=== PATIENT | female | born 1980 | race Asian ===

== ENCOUNTER 2018-11-22 17:33 | Emergency (ER) | payer OTHER ==
--- NOTE | 2018-11-22 18:11 | ER Document Report ---
ED Medical Screen (RME) - General Chief Complaint: Overdose Stated Complaint: POSSIBLE OVERDOSE Time Seen by Provider: 11/22/18 18:01 - HPI Notes: 11/22/18 18:06 Patient is a 38-year-old female with no significant past medical history who presents to the ED with her family and roommate (who is also translating for the pt) for ingesting 40 tablets of zyrtec 10mg at 1545 today. Patient states that this was an act of self-harm and to take her life. Patient states she found out her teenage daughter was talking badly about her and she has already had a strained relationship with her teenage daughter which vomited the action. She has not had any visual or auditory hallucinations. No previous suicidal or homicidal attempts. Patient is currently complaining of fatigue, headache, upset stomach, and feeling mildly short of breath. She otherwise has not had any recent illness. Denies drug allergies. She is otherwise acting at baseline per her roommate. Denies any fever, head injury, neck pain, changes in vision/speech/mentation/hearing, URI, sore throat, chest pain, palpitations, syncope, cough, wheeze, dyspnea, nausea/vomiting/diarrhea, urinary retention, dysuria, hematuria, loss of control of bowel or bladder, numbness/tingling, muscle paralysis/weakness, or rash. I did speak with Cece from poison control who states that the treatment is primarily supportive with 6-hour observation. She would like an EKG for baseline and a 4-hour postingestion Tylenol. They will be calling back later for follow-up. I have treated and performed a rapid initial assessment of this patient. A comprehensive ED assessment and evaluation of the patient, analysis of test results and completion of medical decision making process will be conducted by additional ED providers. PHYSICAL EXAMINATION: GENERAL: no acute distress. A&Ox4. Answers questions appropriately. HEAD: Atraumatic, normocephalic. Non-tender. EYES: Pupils equal round and reactive to light, extraocular movements intact, sclera anicteric, conjunctiva are normal. No nystagmus. ENT: Nares patent and without discharge. oropharynx clear without exudates. No tonsilar hypertrophy or erythema. Moist mucous membranes. NECK: Normal range of motion, supple without lymphadenopathy. No rigidity/meningismus. LUNGS: Breath sounds clear to auscultation bilaterally and equal. No wheezes rales or rhonchi. HEART: Regular rate and rhythm without murmurs, rubs, gallops. ABDOMEN: Soft, nontender, nondistended abdomen. No guarding, no rebound. Normal bowel sounds present. No CVA tenderness bilaterally. Musculoskeletal: Ext b/l: FROM to passive/active. Strength 5+/5. No deficits noted. No bony tenderness of extremities. Extremities: No cyanosis, clubbing, or edema b/l. Peripheral pulses 2+. Capil kiersten refill less than 2 seconds. NEUROLOGICAL: NIH 0. GCS 15. Cranial nerves grossly intact. Normal speech, normal gait. Normal sensory, motor exams. PSYCH: flat/tearful SKIN: Warm, Dry, normal turgor, no rashes or lesions noted. - Related Data Allergies/Adverse Reactions: No Known Allergies Allergy (Unverified 11/22/18 17:36) Past Medical History Renal/ Medical History: Denies: Hx Peritoneal Dialysis Physical Exam - Vital signs Vitals: Temp Pulse Resp BP Pulse Ox 97.7 F 96 16 124/80 100 11/22/18 17:37 11/22/18 17:37 11/22/18 17:37 11/22/18 17:37 11/22/18 17:37 Course - Vital Signs Vital signs: Temp Pulse Resp BP Pulse Ox 97.7 F 96 16 124/80 100 11/22/18 17:37 11/22/18 17:37 11/22/18 17:37 11/22/18 17:37 11/22/18 17:37
[2018-11-22] MEDS ORDERED: NORMAL SALINE 1000 ML 1,000 ML IV ONE (19:45)
[2018-11-22 20:16] LABS: ABSOLUTE EOSINOPHILS # (AUTO) 0.1 10^3/uL (0.0-0.6); ABSOLUTE LYMPHOCYTES (AUTO) 1.9 10^3/uL (0.5-4.7); ABSOLUTE MONOCYTES (AUTO) 0.6 10^3/uL (0.1-1.4); ABSOLUTE NEUT (AUTO) 3.6 10^3/uL (1.7-8.2); BASOPHILS % (AUTO) 0.4 % (0-2); HEMATOCRIT 40.2 % (36.0-47.0); HEMOGLOBIN 13.7 g/dL (12.0-15.5); LYMPHOCYTES % (AUTO) 30.4 % (13-45); MEAN CORPUSCULAR HEMOGLOBIN 29.7 pg (27.0-33.4); MEAN CORPUSCULAR HGB CONC 34.1 g/dL (32.0-36.0); MEAN CORPUSCULAR VOLUME 87 fl (80-97); MONOCYTES % (AUTO) 9.4 % (3-13); PLATELET COUNT 211 10^3/uL (150-450); RED BLOOD COUNT 4.62 10^6/uL (3.72-5.28); RED CELL DISTRIBUTION WIDTH 13.2 % (11.5-14.0); SEGMENTED NEUTROPHILS % (AUTO) 57.8 % (42-78); TOTAL CELLS COUNTED % (AUTO) 100 %; WHITE BLOOD COUNT 6.2 10^3/uL (4.0-10.5)
--- NOTE | 2018-11-22 20:25 | ER Document Report ---
Addendum entered and electronically signed by DARREN BAEZ MD 11/23/18 10:13: Discharge - Discharge Clinical Impression: Suicidal overdose Qualifiers: Encounter type: initial encounter Qualified Code(s): T50.902A - Poisoning by unspecified drugs, medicaments and biological substances, intentional self-harm, initial encounter Condition: Stable Disposition: HOME, SELF-CARE Additional Instructions: You have been evaluated both medical and behavioral health teams and been deemed appropriate for discharge. You highly encouraged to continue using family and friends as her support system. You have been provided a local resource list of area providers for outpatient services if you change your mind. 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 While symptoms may be vague, they often include disturbance of sleep, fatigue, loss of appetite, a nd general loss of interest in life. While depression may be a side effect of drugs, or a reaction to a major change in your life, many cases have no known cause. If depression is acute, and related to a major loss in your life, you can expect it to clear completely with time. If you have been depressed a long time, are prone to repeated bouts of depression or low mood, or have been thinking of suicide, get help. Depression can be treated with anti-depressant medication and counselling. Long-term depression will often take a few weeks to clear, even with appropriate medication. Follow-up care is important. SUICIDAL IDEATION: Suicidal ideation is a common medical term for thoughts about suicide, which may be as detailed as a formulated plan, without the suicidal act itself. Although most people who undergo suicidal ideation do not commit suicide, some go on to make suicide attempts. The range of suicidal ideation varies greatly from fleeting to detailed planning, role playing, and unsuccessful attempts. While thoughts about suicide are common, most people do not carry out serious actions to commit suicide. Based upon your evaluation and discussion with you, we do not believe you are currently at risk to act upon your thoughts of suicide. You have agreed to return to the Emergency Department, at any time, if you feel inclined to act upon your suicidal thoughts. FOLLOW-UP CARE: If you have been referred to a physician for follow-up care, [facility] for an appointment as you were instructed or within the next two days. If you experience worsening or a significant change in your symptoms, notify the physician immediately or return to the Emergency Department at any time for re-evaluation. Referrals: [facility] [Outside] - Follow up as needed Addendum entered and electronically signed by ETHAN TESFAYE LCSWA 11/23/18 09:42: Discharge - Discharge Clinical Impression: Suicidal overdose Qualifiers: Encounter type: initial encounter Qualified Code(s): T50.902A - Poisoning by unspecified drugs, medicaments and biological substances, intentional self-harm, initial encounter Condition: Stable Disposition: HOME, SELF-CARE Additional Instructions: You have been evaluated both medical and behavioral health teams and been deemed appropriate for discharge. You highly encouraged to continue using family and friends as her support system. You have been provided a local resource list of area providers for outpatient services if you change your mind. 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 While symptoms may be vague, they often include disturbance of sleep, fatigue, loss of appetite, and general loss of interest in life. While depression may be a side effect of drugs, or a reaction to a major change in your life, many cases have no known cause. If depression is acute, and related to a major loss in your life, you can expect it to clear completely with time. If you have been depressed a long time, are prone to repeated bouts of depression or low mood, or have been thinking of suicide, get help. Depression can be treated with anti-depressant medication and counselling. Long-term depression will often take a few weeks to clear, even with appropriate medication. Follow-up care is important. SUICIDAL IDEATION: Suicidal ideation is a common medical term for thoughts about suicide, which may be as detailed as a formulated plan, without the suicidal act itself. Although most people who undergo suicidal ideation do not commit suicide, some go on to make suicide attempts. The range of suicidal ideation varies greatly from fleeting to detailed planning, role playing, and unsuccessful attempts. While thoughts about suicide are common, most people do not carry out serious actions to commit suicide. Based upon your evaluation and discussion with you, we do not believe you are currently at risk to act upon your thoughts of suicide. You have agreed to return to the Emergency Department, at any time, if you feel inclined to act upon your suicidal thoughts. FOLLOW-UP CARE: If you have been referred to a physician for follow-up care, call the physicians office for an appointment as you were instructed or within the next two days. If you experience worsening or a significant change in your symptoms, notify the physician immediately or return to the Emergency Department at any time for re-evaluation. Referrals: [facility] [Outside] - Follow up as needed Original Note: ED General - General Chief Complaint: Overdose Stated Complaint: POSSIBLE OVERDOSE Time Seen by Provider: 11/22/18 18:01 - HPI Notes: Patient is a 38-year-old female who presents to the emergency department for evaluation after an apparent overdose. Patient's roommate is present, acting his transla as patient's negative language is Arabic. Evidently she took 40 Zyrtec today.tor, initially she had told family that she had a headache, but she just wanted to go away. On further questioning she states that she just "does not want to deal with things anymore." There is some question as to wheth er or not she thought the Zyrtec was ibuprofen. At any rate, patient and roommate, as well as son, who was present in the room, relates significant difficulties in her relationship with her 14-year-old daughter. The patient denies any homicidal ideation. No visual or auditory hallucination. Otherwise she is been eating and drinking normally, denies any drug or alcohol issues, no legal issues pending. She is currently employed as a manicurist. According to roommate, she had a date last evening that went well. - Related Data Allergies/Adverse Reactions: No Known Allergies Allergy (Unverified 11/22/18 17:36) Home Medications: No home medications Past Medical History - General Information source: Patient - Social History Smoking Status: Never Smoker Family History: Reviewed & Not Pertinent Patient has suicidal ideation: Yes Patient has homicidal ideation: No - Medical History Medical History: Negative Renal/ Medical History: Denies: Hx Peritoneal Dialysis Review of Systems - Review of Systems Constitutional: No symptoms reported EENT: No symptoms reported Cardiovascular: No symptoms reported Respiratory: No symptoms reported Gastrointestinal: No symptoms reported Genitourinary: No symptoms reported Musculoskeletal: No symptoms reported Skin: No symptoms reported Neurological/Psychological: See HPI Physical Exam - Vital signs Vitals: Temp Pulse Resp BP Pulse Ox 97.7 F 96 16 124/80 100 11/22/18 17:37 11/22/18 17:37 11/22/18 17:37 11/22/18 17:37 11/22/18 17:37 - Notes Notes: Vital signs reviewed, please refer to chart. Head is normocephalic, atraumatic. Pupils equal round, reactive to light. Neck is supple without meningismus. Heart is regular rate and rhythm. Lungs are clear to auscultation bilaterally. Abdomen is soft, nontender, normoactive bowel sounds throughout. Extremities without cyanosis, clubbing. Posterior calves are nontender. Peripheral pulses are equal. Skin is warm and dry. Patient is awake, alert, neurological exam is nonfocal. She makes diminished eye contact, very depressed affect. Course - Re-evaluation Re-evalutation: 11/22/18 20:26 Patient presents emergency department for evaluation. She had an ingestion of approximately 40 Zyrtec tablets at 345 this afternoon. Poison control was contacted, supportive care and a 6-hour observation ordered. He did recommend 4 oh hours postingestion acetaminophen. She actually is 4 hours post ingestion of her Zyrtec. If she has any acetaminophen noted, we will go ahead and repeat. Otherwise will observe in ER, awaiting lab results. 11/22/18 22:36 Laboratory investigations are largely unremarkable. Patient is remained stable throughout the course of her stay. Her vitals are unremarkable. We will medically clear the patient for psychiatric evaluation in the morning. IVC papers filled out. - Vital Signs Vital signs: Temp Pulse Resp BP Pulse Ox 97.7 F 78 14 106/70 100 11/22/18 17:37 11/22/18 20:07 11/22/18 20:07 11/22/18 20:07 11/22/18 20:07 - Laboratory Result Diagrams: 11/22/18 19:57 11/22/18 19:57 Laboratory results interpreted by me: 11/22/18 11/22/18 19:57 20:45 Sodium 136.8 L Ur Leukocyte Esterase SMALL H Salicylates < 1.0 L Acetaminophen < 10 L - EKG Interpretation by Me Additional EKG results interpreted by me: 11/22/18 22:36 Sinus mechanism with a rate of 77 bpm. Normal axis and intervals, no acute ST changes concerning for ischemia or infarction. Discharge - Discharge Clinical Impression: Suicidal overdose Qualifiers: Encounter type: initial encounter Qualified Code(s): T50.902A - Poisoning by unspecified drugs, medicaments and biological substances, intentional self-harm, initial encounter Condition: Stable Disposition: OTHER
[2018-11-22 20:38] LABS: ALANINE AMINOTRANSFERASE 25 U/L (9-52); ALBUMIN 4.4 g/dL (3.5-5.0); ALKALINE PHOSPHATASE 99 U/L (38-126); ANION GAP 8 (5-19); ASPARTATE AMINO TRANSFERASE 26 U/L (14-36); BILIRUBIN,DIRECT 0.1 mg/dL (0.0-0.4); BILIRUBIN,TOTAL 0.6 mg/dL (0.2-1.3); BLOOD UREA NITROGEN 9 mg/dL (7-20); CALCIUM 9.3 mg/dL (8.4-10.2); CARBON DIOXIDE 26 mmol/L (22-30); CHLORIDE 103 mmol/L (98-107); GLUCOSE 92 mg/dL (75-110); POTASSIUM 3.8 mmol/L (3.6-5.0); SODIUM 136.8 mmol/L (137-145); TOTAL PROTEIN 7.7 g/dL (6.3-8.2)
[2018-11-22 20:41] LABS: ACETAMINOPHEN < 10 ug/mL (10-30); ALCOHOL < 10 mg/dL (NONE DETECTED); SALICYLATE < 1.0 mg/dL (2.0-20.0)
[2018-11-22 21:29] LABS: AMORPHOUS SEDIMENT,URINE TRACE /HPF; APPEARANCE,URINE CLEAR; BILIRUBIN,URINE NEGATIVE (NEGATIVE); COLOR,URINE STRAW; GLUCOSE, URINE NEGATIVE (NEGATIVE); KETONES,URINE NEGATIVE (NEGATIVE); LEUKOCYTE ESTERASE,URINE SMALL (NEGATIVE); NITRITE,URINE NEGATIVE (NEGATIVE); PROTEIN,URINE NEGATIVE (NEGATIVE); URINE SPECIFIC GRAVITY 1.005; UROBILINOGEN,URINE NEGATIVE mg/dL (<2.0)
[2018-11-22 21:42] LABS: URINE AMPHETAMINES SCREEN NEGATIVE; URINE BARBITURATES SCREEN NEGATIVE; URINE BENZODIAZEPINES SCREEN NEGATIVE; URINE COCAINE SCREEN NEGATIVE; URINE MARIJUANA (THC) SCREEN NEGATIVE; URINE METHADONE SCREEN NEGATIVE; URINE PHENCYCLIDINE SCREEN NEGATIVE
--- NOTE | 2018-11-23 10:15 | EKG REPORT ---
SEVERITY:- NORMAL ECG - SINUS RHYTHM : Confirmed by: Chay Sherwood MD 23-Nov-2018 10:15:26
--- NOTE | 2018-11-23 10:21 | ER Document Report ---
Doctor's Note Notes: 11/23/18 10:13 Rounds: Patient evaluated for accidental ingestion of too much? Zyrtec. Apparently there was no intent to harm her. Patient is feeling fine this morning. All labs are essentially normal. All vital signs were essentially normal. Patient appears to be medically stable for transfer or discharge. Paulette Ferro MD
[2018-11-23 10:37] VITALS: BP 86/54
--- NOTE | 2018-11-23 10:44 | PSYCHOLOGICAL NOTE ---
Psych Note - Psych Note Date seen by psych provider: 11/23/18 Time seen by psych provider: 08:05 - 0830 Psych Note: Reason for Consult: overdose Patient is a 38-year-old female who presents to the emergency department for evaluation after an apparent overdose. Patient's roommate (niece) and son are present per patient's request; patient's roommate is translating per patient's request. Patient's [place] language is [place]. Patient disclosed that she had a headache and thought she was taking medication to help with her headache. She confirms that she took too many because she was "stupid" and just wanted to the stress and headache to go away. Denies intentionally wanting to harm herself. Patient denies a history of mental health. She discloses stressors to include coming to [place] 12 years ago without her children. Patient's children were just able to join her approximately 2 years ago. Patient's son is 17 and daughter is 14. Patient and daughter are having typical relationship struggles on top of cultural acclamation issues. Patient states she came to [facility] because she was concerned she may have done something that hurt herself. Patient's bother arrived. He reports he has no concerns with the patient returning home and identifies family and community as support. He was speaking with patient for during and after event. He reports he knew that she was stressed out and he told her that taking medication to make her daughter feel bad is not appropriate. He states he does not feel the patient was trying to harm herself intentionally and confirms he will assist the patient in both supporting her and communication between her and her daughter. Unspecified problems related to social environment No medication recommendations at this time Impression/Plan: Patient is cleared from acute psychiatric services. Patient presented after concerned she may have overdosed and harmed herself. She reports that this was not intentional and came for assistance. There is evidence that the patient was taking the medication because she was stressed and in attempt at addressing in controlling her daughter's behaviors i.e. guilting her daughter. Both patient and family deny concerns for patient's mental health or thoughts of wanting to . Patient has strong support system which confirmed they will ensure the patient engages in appropriate relationship behaviors and will assist in conversations with patient and daughter. Dr. Sawant was consulted to care management of this patient; attending physicians in agreement with recommendations and disposition.
== END 2018-11-23 11:30 | disposition home or self-care (01) ==
LOC: ER 17:33
DX: T45.0X1A Poisoning by antiallergic and antiemetic drugs, accidental (unintentional), initial encounter (principal); Y92.9 Unspecified place or not applicable
CPT/HCPCS: 93005; 36415; 80307 ×4; 84703; 85025; 80053; 81001; 84484; 93010; J7030; 96360; 99285